=== PATIENT | female | born 1935 | race Caucasian/White ===

== ENCOUNTER 2018-10-08 10:08 | Inpatient (IN) | payer MEDICARE ==
[~2018-10-08] VITALS: Ht 170.2 cm; Wt 63.3 kg
[2018-10-08] MEDS ORDERED: SODIUM CHLORIDE 0.9% 1,000ML IVBOLUS ONE (10:30)
[2018-10-08] MEDS ORDERED: SODIUM CHLORIDE FLUSH 10ML SYR IVF ONE (10:30)
[2018-10-08] MEDS ORDERED: CEFTRIAXONE PMX 1GM/50ML 50 ML IVPB ONE (10:30)
[2018-10-08] MEDS ORDERED: ONDANSETRON 2MG/ML, 2ML IVPush ONE (11:00)
[2018-10-08] MEDS ORDERED: MORPHINE SULFATE 4 MG/ML, 1ML IVPush PRN (11:00)
[2018-10-08] MEDS ORDERED: ONDANSETRON 2MG/ML, 2ML ONE (11:10)
[2018-10-08] MEDS ORDERED: CEFTRIAXONE PMX 1GM/50ML 50 ML ONE (11:11)
[2018-10-08] MEDS ORDERED: MORPHINE SULFATE 4 MG/ML, 1ML ONE (11:11)
[2018-10-08 11:22] LABS: ALANINE AMINOTRANSFERASE 17 U/L (12-78); ALBUMIN 3.8 g/dL (3.4-5.0); ANION GAP 7 mmol/L (5-15); CALCIUM 9.5 mg/dL (8.5-10.1); CHLORIDE 104 mmol/L (98-107); CREATININE 1.17 mg/dL (0.55-1.02)
[2018-10-08 11:24] LABS: ALKALINE PHOSPHATASE 181 U/L (45-117); BILIRUBIN,TOTAL 0.5 mg/dL (0.2-1.0); TOTAL PROTEIN 9.2 g/dL (6.4-8.2)
--- NOTE | 2018-10-08 11:44 | NUR ---
PT TO CT AT THIS TIME
[2018-10-08 11:45] LABS: MEAN CORPUSCULAR HEMOGLOBIN 32.7 pg (27.0-34.8); MEAN CORPUSCULAR HGB CONC 32.3 g/dL (32.4-35.8); MEAN CORPUSCULAR VOLUME 101.2 fL (80-100); MEAN PLATELET VOLUME 8.3 fL (7.4-10.4); PLATELET COUNT 234 x10^3/uL (130-400); RED BLOOD COUNT 4.93 x10^6/uL (3.82-5.3); RED CELL DISTRIBUTION WIDTH 14.6 % (9.6-15.2)
[2018-10-08 11:46] LABS: BASOPHILS # (AUTO) 0.04 x10^3/uL (0-0.1); BASOPHILS % (AUTO) 1 % (0-1); EOSINOPHILS # (AUTO) 0.19 x10^3/uL (0-0.4); EOSINOPHILS % (AUTO) 3 % (1-7); LYMPHOCYTES # (AUTO) 1.24 x10^3/uL (1-3.4); LYMPHOCYTES % (AUTO) 20 % (22-44); MD SCAN; MONOCYTES # (AUTO) 0.39 x10^3/uL (0.2-0.8); MONOCYTES % (AUTO) 6 % (2-9); NEUTROPHILS # (AUTO) 4.29 x10^3/uL (1.8-6.8); NEUTROPHILS % (AUTO) 70 % (42-75)
[2018-10-08] MEDS ORDERED: OMNIPAQUE 350 MG/ML, 150 ML BOTTLE ONE (12:12)
[2018-10-08] MEDS: NICOTINE 21 MG/24 HR PATCH.TD24 TD SCH (14:00)
[2018-10-08 14:15] LABS: MICROSCOPIC NOT IND
[2018-10-08 14:18] LABS: CULTURE INDICATED? NO
[2018-10-08] MEDS: HEPARIN 5,000 UNITS/ML, 1ML SQ SCH ×2 (15:05→22:40)
[2018-10-08] MEDS: SODIUM CHLORIDE 0.9% 1,000 ML IV SCH (15:05)
[2018-10-08] MEDS: METHOCARBAMOL 500 MG TABLET PO PRN ×2 (15:05→22:40)
[2018-10-08 15:17] VITALS: BP 141/88
[2018-10-08 16:11] LABS: CREATININE,URINE RANDOM 24.5 mg/dL
[2018-10-08 21:01] VITALS: BP 119/60
[2018-10-09 01:46] VITALS: BP 116/69
[2018-10-09] MEDS: ACETAMINOPHEN 325 MG TABLET PO PRN ×3 (01:48→21:03)
[2018-10-09] MEDS: SODIUM CHLORIDE 0.9% 1,000 ML IV SCH ×3 (01:49→22:46)
[2018-10-09 04:22] LABS: ALBUMIN 2.8 g/dL (3.4-5.0); CALCIUM 8.2 mg/dL (8.5-10.1); CHLORIDE 109 mmol/L (98-107)
[2018-10-09 04:25] LABS: BASOPHILS # (AUTO) 0.02 x10^3/uL (0-0.1); BASOPHILS % (AUTO) 0 % (0-1); EOSINOPHILS # (AUTO) 0.22 x10^3/uL (0-0.4); EOSINOPHILS % (AUTO) 4 % (1-7); LYMPHOCYTES # (AUTO) 1.15 x10^3/uL (1-3.4); LYMPHOCYTES % (AUTO) 18 % (22-44); MD NO; MEAN CORPUSCULAR HEMOGLOBIN 32.8 pg (27.0-34.8); MEAN CORPUSCULAR HGB CONC 32.5 g/dL (32.4-35.8); MEAN CORPUSCULAR VOLUME 100.8 fL (80-100); MEAN PLATELET VOLUME 8.4 fL (7.4-10.4); MONOCYTES # (AUTO) 0.55 x10^3/uL (0.2-0.8); MONOCYTES % (AUTO) 9 % (2-9); NEUTROPHILS # (AUTO) 4.38 x10^3/uL (1.8-6.8); NEUTROPHILS % (AUTO) 69 % (42-75); PLATELET COUNT 225 x10^3/uL (130-400); RED BLOOD COUNT 3.97 x10^6/uL (3.82-5.3); RED CELL DISTRIBUTION WIDTH 14.4 % (9.6-15.2)
[2018-10-09 04:37] LABS: ALANINE AMINOTRANSFERASE 11 U/L (12-78); ALKALINE PHOSPHATASE 123 U/L (45-117); ANION GAP 7 mmol/L (5-15); BILIRUBIN,TOTAL 0.4 mg/dL (0.2-1.0); CREATININE 1.02 mg/dL (0.55-1.02); TOTAL PROTEIN 6.9 g/dL (6.4-8.2)
[2018-10-09] MEDS: HEPARIN 5,000 UNITS/ML, 1ML SQ SCH ×3 (06:29→22:47)
[2018-10-09] MEDS: METHOCARBAMOL 500 MG TABLET PO PRN ×3 (06:29→22:45)
[2018-10-09 08:28] LABS: MICROSCOPIC NOT IND
[2018-10-09 08:42] VITALS: BP 120/53
[2018-10-09] MEDS: FAMOTIDINE 20 MG TABLET PO SCH (08:51)
[2018-10-09] MEDS ORDERED: CEFTRIAXONE PMX 1GM/50ML 50 ML IV SCH (09:00)
[2018-10-09] MEDS ORDERED: ERGOCALCIFEROL 50,000 UNIT CAPSULE PO SCH (11:30)
[2018-10-09] MEDS: CYANOCOBALAMIN 1,000 MCG TABLET PO SCH (12:00)
[2018-10-09] MEDS: NICOTINE 21 MG/24 HR PATCH.TD24 TD SCH (12:02)
[2018-10-09 13:55] VITALS: BP 112/60
[2018-10-09] MEDS ORDERED: CIPR250T2 PO (18:11)
[2018-10-09 18:27] VITALS: BP 118/73
[2018-10-09] MEDS ORDERED: NITROFURANTOIN (MACROBID) 100 MG CAPSULE PO SCH (21:00)
[2018-10-09] MEDS ORDERED: CIPROFLOXACIN 250 MG TABLET PO SCH (21:00)
[2018-10-10 00:53] VITALS: BP 128/74
[2018-10-10 05:47] LABS: BASOPHILS # (AUTO) 0.02 x10^3/uL (0-0.1); BASOPHILS % (AUTO) 0 % (0-1); EOSINOPHILS # (AUTO) 0.18 x10^3/uL (0-0.4); EOSINOPHILS % (AUTO) 3 % (1-7); LYMPHOCYTES # (AUTO) 1.09 x10^3/uL (1-3.4); LYMPHOCYTES % (AUTO) 20 % (22-44); MD NO; MEAN CORPUSCULAR HEMOGLOBIN 33.3 pg (27.0-34.8); MEAN CORPUSCULAR HGB CONC 33.2 g/dL (32.4-35.8); MEAN CORPUSCULAR VOLUME 100.2 fL (80-100); MEAN PLATELET VOLUME 8.2 fL (7.4-10.4); MONOCYTES # (AUTO) 0.45 x10^3/uL (0.2-0.8); MONOCYTES % (AUTO) 8 % (2-9); NEUTROPHILS # (AUTO) 3.73 x10^3/uL (1.8-6.8); NEUTROPHILS % (AUTO) 68 % (42-75); PLATELET COUNT 218 x10^3/uL (130-400); RED CELL DISTRIBUTION WIDTH 14.6 % (9.6-15.2)
[2018-10-10 06:03] LABS: ALBUMIN 2.7 g/dL (3.4-5.0); ANION GAP 8 mmol/L (5-15); CALCIUM 8.4 mg/dL (8.5-10.1); CHLORIDE 113 mmol/L (98-107); CREATININE 0.95 mg/dL (0.55-1.02)
[2018-10-10] MEDS: ACETAMINOPHEN 325 MG TABLET PO PRN ×2 (06:18→20:23)
[2018-10-10] MEDS: HEPARIN 5,000 UNITS/ML, 1ML SQ SCH ×3 (06:19→23:17)
[2018-10-10 07:08] VITALS: BP 154/78
[2018-10-10] MEDS: SODIUM CHLORIDE 0.9% 1,000 ML IV SCH ×2 (09:02→20:27)
[2018-10-10] MEDS: CYANOCOBALAMIN 1,000 MCG TABLET PO SCH (09:02)
[2018-10-10] MEDS: FAMOTIDINE 20 MG TABLET PO SCH (09:02)
[2018-10-10] MEDS: METHOCARBAMOL 500 MG TABLET PO PRN ×2 (09:10→20:23)
[2018-10-10 12:14] VITALS: BP 156/83
[2018-10-10] MEDS: NICOTINE 21 MG/24 HR PATCH.TD24 TD SCH (14:00)
[2018-10-10 21:21] VITALS: BP 130/71
[2018-10-11 00:43] VITALS: BP 144/85
[2018-10-11] MEDS: METHOCARBAMOL 500 MG TABLET PO PRN ×2 (04:09→21:42)
[2018-10-11] MEDS: ACETAMINOPHEN 325 MG TABLET PO PRN ×2 (04:09→21:42)
[2018-10-11] MEDS: HEPARIN 5,000 UNITS/ML, 1ML SQ SCH (06:25)
[2018-10-11] MEDS: SODIUM CHLORIDE 0.9% 1,000 ML IV SCH ×2 (06:25→21:47)
[2018-10-11 07:07] VITALS: BP 155/90
[2018-10-11] MEDS: CYANOCOBALAMIN 1,000 MCG TABLET PO SCH (09:31)
[2018-10-11] MEDS: FAMOTIDINE 20 MG TABLET PO SCH (09:31)
[2018-10-11 13:16] VITALS: BP 144/87
[2018-10-11] MEDS: NICOTINE 21 MG/24 HR PATCH.TD24 TD SCH (13:32)
[2018-10-11 20:14] VITALS: BP 150/83
[2018-10-12 02:09] VITALS: BP 143/91
[2018-10-12 05:35] LABS: ALBUMIN 2.7 g/dL (3.4-5.0); ANION GAP 6 mmol/L (5-15); CALCIUM 8.4 mg/dL (8.5-10.1); CHLORIDE 113 mmol/L (98-107)
[2018-10-12 05:39] LABS: ALANINE AMINOTRANSFERASE 16 U/L (12-78); ALKALINE PHOSPHATASE 153 U/L (45-117); BILIRUBIN,TOTAL 0.4 mg/dL (0.2-1.0); CREATININE 0.99 mg/dL (0.55-1.02)
[2018-10-12 06:11] LABS: MEAN CORPUSCULAR HEMOGLOBIN 33.4 pg (27.0-34.8); MEAN CORPUSCULAR HGB CONC 33.1 g/dL (32.4-35.8); MEAN CORPUSCULAR VOLUME 100.6 fL (80-100); MEAN PLATELET VOLUME 8.6 fL (7.4-10.4); PLATELET COUNT 253 x10^3/uL (130-400); RED BLOOD COUNT 4.14 x10^6/uL (3.82-5.3); RED CELL DISTRIBUTION WIDTH 14.4 % (9.6-15.2)
[2018-10-12 06:13] LABS: BASOPHILS # (AUTO) 0.03 x10^3/uL (0-0.1); BASOPHILS % (AUTO) 1 % (0-1); EOSINOPHILS # (AUTO) 0.29 x10^3/uL (0-0.4); EOSINOPHILS % (AUTO) 6 % (1-7); LYMPHOCYTES # (AUTO) 1.27 x10^3/uL (1-3.4); LYMPHOCYTES % (AUTO) 27 % (22-44); MD SCAN; MONOCYTES # (AUTO) 0.38 x10^3/uL (0.2-0.8); MONOCYTES % (AUTO) 8 % (2-9); NEUTROPHILS # (AUTO) 2.76 x10^3/uL (1.8-6.8); NEUTROPHILS % (AUTO) 58 % (42-75)
[2018-10-12] MEDS ORDERED: BUPIVACAINE/PF 0.5% ONE (06:52)
[2018-10-12] MEDS ORDERED: EPINEPHRINE 1 MG/ML, 1ML ONE ×2 (06:52)
[2018-10-12 07:42] LABS: INTERNATIONAL NORMALIZED RATIO 0.92 (0.93-1.1); PROTHROMBIN TIME 9.7 Seconds (9.6-11.5)
[2018-10-12 08:12] VITALS: BP 160/92
[2018-10-12] MEDS ORDERED: FENTANYL PF 250 MCG/5ML ONE (08:19)
[2018-10-12] MEDS ORDERED: MIDAZOLAM 1 MG/ML, 2ML ONE (08:19)
[2018-10-12] MEDS ORDERED: ROCURONIUM 10MG/ML,5ML ONE (08:20)
[2018-10-12] MEDS ORDERED: LIDOCAINE-MPF 2% ,5ML ONE (08:21)
[2018-10-12] MEDS ORDERED: PROPOFOL 10 MG/ML, 20ML ONE (08:21)
[2018-10-12] MEDS ORDERED: CEFAZOLIN 1,000 MG ONE ×2 (08:22)
[2018-10-12] MEDS ORDERED: PHENYLEPHRINE 10 MG/ML ONE (08:22)
[2018-10-12] MEDS ORDERED: WATER-INJECTION,STERILE 10 ML IV ONE (08:22)
[2018-10-12] MEDS ORDERED: PROPOFOL 50 ML ONE (08:35)
[2018-10-12] MEDS ORDERED: APREPITANT 40 MG CAPSULE ONE (08:43)
[2018-10-12] MEDS ORDERED: SUCCINYLCHOLINE 20 MG/ML, 10ML ONE (08:53)
[2018-10-12] MEDS: FAMOTIDINE 20 MG TABLET PO SCH (09:00)
[2018-10-12] MEDS: SODIUM CHLORIDE 0.9% 1,000 ML IV SCH ×2 (09:00→16:56)
[2018-10-12] MEDS: CYANOCOBALAMIN 1,000 MCG TABLET PO SCH (09:00)
[2018-10-12] MEDS ORDERED: ONDANSETRON 2MG/ML, 2ML ONE ×4 (09:06)
[2018-10-12] MEDS ORDERED: DEXAMETHASONE 4 MG/ML, 1ML ONE ×2 (09:06)
[2018-10-12] MEDS ORDERED: OMNIPAQUE 180 MG/ML, 20ML VIAL IT ONE (09:44)
[2018-10-12] MEDS ORDERED: OMNIPAQUE 180 MG/ML, 20ML VIAL ONE (09:59)
[2018-10-12] MEDS ORDERED: ALBUTEROL/IPRATROPIUM 2.5MG/0.5MG, 3 ML NPPB PRN (10:00)
[2018-10-12] MEDS ORDERED: HYDROmorphone 2 MG/ML, 1ML IVPush PRN (10:00)
[2018-10-12] MEDS ORDERED: PROMETHAZINE 25 MG/ML, 1ML IV PRN (10:00)
[2018-10-12] MEDS ORDERED: HYDROcodone/APAP 7.5-325MG/15ML UDC PO PRN (10:00)
[2018-10-12] MEDS ORDERED: FENTANYL PF 100 MCG/2ML IV PRN (10:00)
[2018-10-12] MEDS ORDERED: hydrALAzine 20 MG/ML, 1ML IV PRN (10:00)
[2018-10-12] MEDS ORDERED: MEPERIDINE/PF 25MG/0.5ML IVPush PRN (10:00)
[2018-10-12] MEDS ORDERED: HALOPERIDOL 5 MG/ML IV PRN (10:00)
[2018-10-12] MEDS ORDERED: ACETAMINOPHEN 650 MG/20.3 ML UDC ONE (11:15)
[2018-10-12] MEDS: ACETAMINOPHEN 325 MG TABLET PO PRN ×2 (11:16→16:55)
[2018-10-12 12:32] VITALS: BP 163/91
[2018-10-12] MEDS: NICOTINE 21 MG/24 HR PATCH.TD24 TD SCH (14:00)
[2018-10-12 20:02] VITALS: BP 123/73
[2018-10-12] MEDS: HYDROcodone/APAP 5/325 TABLET PO PRN (22:09)
[2018-10-13 00:15] VITALS: BP 115/73
[2018-10-13] MEDS: SODIUM CHLORIDE 0.9% 1,000 ML IV SCH ×2 (03:13→15:00)
[2018-10-13 04:10] VITALS: BP 125/75
[2018-10-13 05:30] LABS: BASOPHILS # (AUTO) 0.01 x10^3/uL (0-0.1); BASOPHILS % (AUTO) 0 % (0-1); EOSINOPHILS % (AUTO) 0 % (1-7); LYMPHOCYTES # (AUTO) 0.97 x10^3/uL (1-3.4); LYMPHOCYTES % (AUTO) 17 % (22-44); MD NO; MEAN CORPUSCULAR HGB CONC 32.4 g/dL (32.4-35.8); MEAN CORPUSCULAR VOLUME 98.7 fL (80-100); MEAN PLATELET VOLUME 8.3 fL (7.4-10.4); MONOCYTES # (AUTO) 0.36 x10^3/uL (0.2-0.8); MONOCYTES % (AUTO) 6 % (2-9); NEUTROPHILS # (AUTO) 4.44 x10^3/uL (1.8-6.8); NEUTROPHILS % (AUTO) 77 % (42-75); PLATELET COUNT 255 x10^3/uL (130-400); RED BLOOD COUNT 3.81 x10^6/uL (3.82-5.3); RED CELL DISTRIBUTION WIDTH 14.2 % (9.6-15.2)
[2018-10-13 05:38] LABS: ALBUMIN 2.5 g/dL (3.4-5.0); ANION GAP 5 mmol/L (5-15); CALCIUM 8.2 mg/dL (8.5-10.1); CHLORIDE 112 mmol/L (98-107); CREATININE 0.92 mg/dL (0.55-1.02)
[2018-10-13 06:44] VITALS: BP 135/82
[2018-10-13] MEDS: FAMOTIDINE 20 MG TABLET PO SCH (08:34)
[2018-10-13] MEDS: CYANOCOBALAMIN 1,000 MCG TABLET PO SCH (08:34)
[2018-10-13] MEDS ORDERED: ERGO500017 PO (10:26)
[2018-10-13] MEDS ORDERED: NICO-487 TD (10:26)
[2018-10-13] MEDS ORDERED: HYDR-3237 PO (10:26)
[2018-10-13] MEDS ORDERED: METH500T7 PO (10:26)
[2018-10-13] MEDS ORDERED: ACET325T14 PO (10:26)
[2018-10-13] MEDS ORDERED: POLY17PO5 PO (10:27)
[2018-10-13 13:28] VITALS: BP 118/67
[2018-10-13] MEDS: NICOTINE 21 MG/24 HR PATCH.TD24 TD SCH (15:22)
[2018-10-13] MEDS: METHOCARBAMOL 500 MG TABLET PO PRN (16:18)
[2018-10-13] MEDS: HYDROcodone/APAP 5/325 TABLET PO PRN (16:19)
[2018-10-13 20:19] VITALS: BP 118/72
[2018-10-14] MEDS: SODIUM CHLORIDE 0.9% 1,000 ML IV SCH ×2 (01:00→11:08)
[2018-10-14 02:25] VITALS: BP 128/70
[2018-10-14] MEDS: HYDROcodone/APAP 5/325 TABLET PO PRN ×2 (03:53→10:14)
[2018-10-14] MEDS: METHOCARBAMOL 500 MG TABLET PO PRN (03:53)
[2018-10-14 07:49] VITALS: BP 143/82
[2018-10-14] MEDS: CYANOCOBALAMIN 1,000 MCG TABLET PO SCH (08:47)
[2018-10-14] MEDS: FAMOTIDINE 20 MG TABLET PO SCH (08:47)
[2018-10-14 10:07] VITALS: BP 135/63
== END 2018-10-14 11:05 | disposition home or self-care (01) | DRG 478 ==
LOC: ED 11:26 → EDIP 12:40 → 4NOR 13:45 → DCLOUNGE 10-14 10:36
PROVIDERS: ADMIT Hospitalist; ATTEND Hospitalist
PROC: 0PB43ZX Excision of Thoracic Vertebra, Percutaneous Approach, Diagnostic (ICD-10-PCS; 2018-10-12)
PROC: 0PU43JZ Supplement Thoracic Vertebra with Synthetic Substitute, Percutaneous Approach (ICD-10-PCS; 2018-10-12)
PROC: 0PS43ZZ Reposition Thoracic Vertebra, Percutaneous Approach (ICD-10-PCS; principal; 2018-10-12 08:30)
DX: M80.08XA Age-related osteoporosis with current pathological fracture, vertebra(e), initial encounter for fracture (principal); S22.088A Other fracture of T11-T12 vertebra, initial encounter for closed fracture; N39.0 Urinary tract infection, site not specified; N28.1 Cyst of kidney, acquired; B96.20 Unspecified Escherichia coli [E. coli] as the cause of diseases classified elsewhere; D75.89 Other specified diseases of blood and blood-forming organs; E53.8 Deficiency of other specified B group vitamins; I71.4 Abdominal aortic aneurysm, without rupture; J84.10 Pulmonary fibrosis, unspecified; Z66 Do not resuscitate; F17.210 Nicotine dependence, cigarettes, uncomplicated; M19.90 Unspecified osteoarthritis, unspecified site; R74.8 Abnormal levels of other serum enzymes; Z80.1 Family history of malignant neoplasm of trachea, bronchus and lung; Z90.710 Acquired absence of both cervix and uterus; Z88.0 Allergy status to penicillin; Z79.899 Other long term (current) drug therapy; Y93.89 Activity, other specified; Y92.89 Other specified places as the place of occurrence of the external cause; Y99.8 Other external cause status
CPT/HCPCS: 36415; 71250; 72072; 74178; 77074; 80048; 80053; 81003; 82040; 82306; 82570; 82607; 83605; 83880; 84156; 84443; 85025; 85610; 85730; 87040; 88307; 88311; 88342; 93005; 93306; 96365; 96375; C1713; G0378; J0171; J0690; J0696; J1100; J1644; J2250; J2405; J2704; J3010; Q9965; Q9967; J0330; J2270; J2370; J7030